=== PATIENT | male | born 1965 | race Caucasian/White ===

== ENCOUNTER 2017-02-20 17:22 | Emergency (ER) | payer OTHER ==
[2017-02-20] MEDS ORDERED: CEPHALEXIN 500 MG CAPSULE PO STA (18:29)
--- NOTE | 2017-02-20 18:29 | Emergency Department Record ---
History of Present Illness - General Chief Complaint: Wound, puncture Stated Complaint: SLIVER IN PALM OF R HAND Time Seen by Provider: 02/20/17 18:07 Source: Patient Mode of Arrival: Ambulatory Limitations: No limitations - History of Present Illness Initial Commments: The patient is here due to a FB in the R palm for one day. He was working with a wood floor and sustained a PW with a large sliver to the R palm. His td is UTD. He denies an numbness, tingling or weakness. Onset/Timin -: Days(s) Place: Home Context: Accidental Associated Symptoms: None - Rosanne Coma Scale Eye Response: (4) Open spontaneously Motor Response: (6) Obeys commands Verbal Response: (5) Oriented [place] Total: 15 - Related Data Hx Tetanus Toxoid Vaccination: Yes Year of Tetanus Vaccination: 2012 Patient Tetanus UTD (within 5 yrs): Yes Home Medications Medication Instructions Recorded Confirmed Last Taken Lisinopril 40 mg PO DAILY 02/20/17 02/20/17 Unknown Previous Rx's Medication Instructions Recorded Cephalexin [Keflex] 500 mg PO QID #20 cap 02/20/17 Allergies Allergy/AdvReac Type Severity Reaction Status Date / Time codeine Allergy ANAPHYLAXIS Verified 02/20/17 17:38 Travel Screening - Travel/Exposure Within Last 30 Days Have you traveled within the last 30 days?: No Review of Systems Constitutional: Denies: Chills, Fever Past Medical History - SOCIAL HISTORY Smoking Status: Never smoker Alcohol Use: None Drug Use: None - RESPIRATORY Hx Respiratory Disorders: No - CARDIOVASCULAR Hx Cardio Disorders: No - NEURO Hx Neuro Disorders: No - GI Hx GI Disorders: Yes Hx Diverticulitis: Yes Hx Irritable Bowel: Yes Comment:: lactose intoerant - Hx Genitourinary Disorders: Yes Comment:: prostitis - ENDOCRINE Hx Endocrine Disorders: No - MUSCULOSKELETAL Hx Musculoskeletal Disorders: No - PSYCH Hx Psych Problems: No - HEMATOLOGY/ONCOLOGY Hx Hematology/Oncology Disorders: No Family Medical History Any Significant Family History?: Yes Hx HTN: Father, Grandparents Physical Exam - General General Appearance: Alert, Oriented x3, Cooperative, No acute distress - Head Head exam: Atraumatic, Normocephalic, Normal inspection - Eye Eye exam: Normal appearance, PERRL - Extremities Extremities exam: negative: Normal inspection (There is a large sliver to the R proximal mid palm. The hand is NVI distally and globally.) - Neurological Neurological exam: Normal gait. negative: Abnormal gait, Motor sensory deficit Course Vital Signs 02/20/17 17:33 Temperature 98.0 F Pulse Rate 89 Respiratory 16 Rate Blood Pressure 138/96 Pulse Ox 97 - Reevaluation(s) Reevaluation #1: Procedure note: The R hand PW was cleansed with alcohol and anesth. with 1 cc Lido 1% with Epi. The PW was then cleansed with alcohol again and a 1/2 inch piece of wood was removed with forceps. There were no complications. 02/20/17 18:27 Reevaluation #2: I did discuss the issue of a retained FB with the patient. The wood FB came out in one piece but there always is a chance there is a retained piece left in the wound. I did discuss with the patient that if the hand does get infected there is a possibility there is still a piece of wood left deep in the wound. If that occurs he will need to return to the ER for further evaluation. 02/20/17 18:31 Disposition Disposition: Discharge Clinical Impression: Puncture wound of hand Qualifiers: Encounter type: initial encounter Foreign body presence: without foreign body Laterality: right Qualified Code(s): S61.431A - Puncture wound without foreign body of right hand, initial encounter Disposition: Home, Self-Care Instructions: Puncture Wound (ED) Additional Instructions: Please wash daily and dress with Abx ointment and cover with a bandaid until healed. Take the Keflex as directed and return to the ER for any signs of infection. Prescriptions: Cephalexin [Keflex] 500 mg PO QID #20 cap Forms: Patient Portal Access Time of Disposition: 18:29
== END 2017-02-20 18:35 | disposition home or self-care (01) ==
LOC: ER 17:22
DX: S60.551A Superficial foreign body of right hand, initial encounter (principal); W45.8XXA Other foreign body or object entering through skin, initial encounter; Y93.H3 Activity, building and construction; Y92.009 Unspecified place in unspecified non-institutional (private) residence as the place of occurrence of the external cause
CPT/HCPCS: 99283

== ENCOUNTER 2019-08-02 19:58 | Emergency (ER) | payer OTHER ==
--- NOTE | 2019-08-02 20:17 | Emergency Department Record ---
History of Present Illness - General Chief Complaint: Numbness Stated Complaint: TIANNA,NUBNESS ON FACE Time Seen by Provider: 08/02/19 20:09 Source: Patient Mode of Arrival: Ambulatory Limitations: No limitations - History of Present Illness Initial Comments: 53 yo male presents to ED for evaluation of numbness and weakness to the left face that began 2-3 days ago, reports that his symptoms have progressively worsened. Patient denies change in vision or change in speech, denies focal weakness to the upper or lower extremities on exmaination. Patient reports a history of HTN, denies history of DM, heart, or lung problems. Patient denies history of vascular disease. Patient reports that he has become fatigued lately after working extended hours. Onset/Timin -: Days(s) Location: Left face History of same: No Place: Home Severity: Moderate Quality: Constant Improves With: None Worsens With: None On Anticoagulants: No Context: Gradual onset Associated Symptoms: Denies other symptoms Treatments Prior to Arrival: None - [place] Coma Scale Eye Response: (4) Open spontaneously Motor Response: (6) Obeys commands Verbal Response: (5) Oriented [place] Total: 15 - Related Data Home Medications: Previous Rx's Medication Instructions Recorded Prednisone [Prednisone 20Mg] 40 mg PO BID #30 tab 08/02/19 Allergies/Adverse Reactions: Allergies Allergy/AdvReac Type Severity Reaction Status Date / Time codeine Allergy ANAPHYLAXIS Verified 02/20/17 17:38 Review of Systems Constitutional: Denies: Chills, Fever, Malaise Eyes: Denies: Eye discharge, Eye pain, Photophobia, Vision change ENT: Denies: Congestion, Ear pain, Epistaxis Respiratory: Denies: Cough, Dyspnea Cardiovascular: Denies: Chest pain, Dyspnea on exertion Endocrine: Reports: Fatigue. Denies: Heat or cold intolerance Gastrointestinal: Denies: Abdominal pain, Nausea, Vomiting Genitourinary: Denies: Incontinence, Retention Musculoskeletal: Denies: Arthralgia, Back pain Skin: Denies: Bruising, Change in color Neurological: Reports: Numbness. Denies: Abnormal gait, Confusion, Headache, Tingling, Tremors Psychiatric: Denies: Anxiety Hematological/Lymphatic: Denies: Anemia, Blood Clots Past Medical History - SOCIAL HISTORY Smoking Status: Never smoker Drug Use: None - RESPIRATORY Hx Respiratory Disorders: No - CARDIOVASCULAR Hx Cardio Disorders: No - NEURO Hx Neuro Disorders: No - GI Hx GI Disorders: Yes Hx Diverticulitis: Yes Hx Irritable Bowel: Yes Comment:: lactose intoerant - Hx Genitourinary Disorders: Yes Comment:: prostitis - ENDOCRINE Hx Endocrine Disorders: No - MUSCULOSKELETAL Hx Musculoskeletal Disorders: No - PSYCH Hx Psych Problems: No - HEMATOLOGY/ONCOLOGY Hx Hematology/Oncology Disorders: No Family Medical History Hx HTN: Father, Grandparents Physical Exam - General General Appearance: Alert, Oriented x3, Cooperative, Mild distress, Anxious Limitations: No limitations - Head Head exam: Atraumatic, Normocephalic, Normal inspection Head exam detail: negative: Abrasion, Contusion, Dennis's sign, General tenderness, Hematoma, Laceration - Eye Eye exam: Normal appearance. negative: Conjunctival injection, Periorbital swelling, Periorbital tenderness, Scleral icterus - ENT Ear exam: negative: Auricular hematoma, Auricular trauma Nasal Exam: negative: Active bleeding, Discharge, Dried blood, Foreign body Mouth exam: negative: Drooling, Laceration, Muffled voice, Tongue elevation - Neck Neck exam: Normal inspection. negative: Meningismus, Tenderness - Respiratory Respiratory exam: Normal lung sounds bilaterally. negative: Respiratory distress, Rhonchi, Stridor, Wheezes - Cardiovascular Cardiovascular Exam: Regular rate, Normal rhythm, Normal heart sounds - GI/Abdominal GI/Abdominal exam: Soft. 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 negative: Abrasion Type of lesion: negative: abrasion Course Vital Signs 08/02/19 20:02 Temperature 98.2 F Pulse Rate [ 88 Left] Respiratory 16 Rate Blood Pressure 183/110 [Left Arm] Pulse Ox 100 - Reevaluation(s) Reevaluation #1: 08/02/19 20:15 EKG: NSR 81 LAD, normal intervals No acute ST-T wave changes are present Patient was seen and examined. Patient is concerned about possible CVA, no evidence for significant CVA based on examination. Patient presents with right sided facial weakness, inability to fully close the right eye, and involvement of the right forehead all c/w LMN or Burnham's palsy. Will obtain basic labs and imaging of the head and neck for further evaluation, and reassess. Reevaluation #2: 08/02/19 21:10 Laboratory studies were reviewed and appear grossly unremarkable for an acute process. Patient is back from CT imaging, reassessed, no progression of his symptoms. Reevaluation #3: 08/02/19 21:46 CT Brain w/o contrast: No acute process Small vessel ischemic changes CTA Head and Neck: No intracranial stenosis Normal anatomy No dissection or stenosis of neck Nodule thyroid, recommend US foollow-up Possible psuedoaneurysm at the junction of the right internal jugular vein and right subclavian vein. Patient and all family members at the bedside were updated on all results Patient was counsled re: Burnham's palsy which appears c/w his examination. Patient appears stable for discharge on Prednisone as directed. Medical Decision Making - Lab Data Result diagrams: 08/02/19 20:10 08/02/19 20:10 Disposition Disposition: Discharge Clinical Impression: Burnham's palsy Disposition: Home, Self-Care Condition: (2) Stable Instructions: Burnham Palsy (ED) Additional Instructions: Return to ED if your symptoms worsen or if you have any concerns. Prednisone and Artifical tears as directed. Follow-up with your family doctor in 1-3 days as directed. Follow-up ultrasound is recommended for possible thyroid nodule and possible psuedoaneurysm at the junction of the right subclavian vein and right internal jugular vein in 2-4 weeks as directed. Prescriptions: Prednisone [Prednisone 20Mg] 40 mg PO BID #30 tab Forms: Patient Portal Access Time of Disposition: 21:51 Quality - Quality Measures Quality Measures: N/A - Blood Pressure Screening Does Patient Have Any of the Following: Active Dx of HTN Blood Pressure Classification: Hypertensive Reading Systolic Measurement: 161 Diastolic Measurement: 96 Screening for High Blood Pressure: Patient Exclusion, Hx of HTN [[id number]]
[2019-08-02 20:32] LABS: ABSOLUTE NEUTROPHIL COUNT 2.18; BASO % 1.4 % (0-6); GRAN % 43.3 % (47-80); HEMATOCRIT 43.8 % (42.0-52.0); HEMOGLOBIN 14.6 gm/dl (14.0-18.0); LYMPH % 38.4 % (16-45); MEAN CELL VOLUME 86.6 fl (81-97); MEAN CORPUSCULAR HEMOGLOBIN 28.9 pg (27-33); MEAN CORPUSCULAR HGB CONC 33.3 g/dl (32-36); MONO % 10.9 % (0-9); PLATELET COUNT 362 K/uL (130-400); RED BLOOD COUNT 5.06 M/uL (4.40-5.70); RED CELL DISTRIBUTION WIDTH 12.9 % (11.5-14.5)
[2019-08-02 20:44] LABS: BLOOD UREA NITROGEN 17 mg/dL (6-20); CREATININE 0.7 mg/dL (0.7-1.2); EST GLOMERULAR FILTRATION RATE > 60 mL/min
[2019-08-02 20:45] LABS: TOTAL PROTEIN 7.2 g/dL (6.6-8.7)
[2019-08-02 20:47] LABS: GLUCOSE,RANDOM 114 mg/dL (74-109)
[2019-08-02 20:50] LABS: ALB/GLOB RATIO 1.7 (1.1-1.8); ALBUMIN 4.5 g/dL (4.0-5.0); ALKALINE PHOSPHATASE 55 U/L (40-129); ALT/SGPT 22 U/L (<41); AST/SGOT 17 U/L (10.0-50.0)
[2019-08-02] MEDS ORDERED: PREDNISONE 20 MG TAB PO ONE (21:58)
--- NOTE | 2019-08-04 20:11 | CT SCAN REPORT ---
EXAM: CT SCAN HEAD WO CONTRAST HISTORY: PATIENT HAS FACIAL NUMBNESS AND LEFT-SIDED WEAKNESS. TECHNIQUE: Serial axial CT scan of the head was performed at 2.5 mm intervals from the base of the skull to the apex without the use of intravenous contrast. Sagittal and coronal reconstructions are provided. No comparison CT's are available. FINDINGS: The ventricles, cisterns, sulci appear within normal limits for size, shape, and attenuation. There is no mass or mass effect. Mild periventricular and subcortical white matter chronic small vessel ischemic changes are identified. There is no CT evidence of intra or extraaxial fluid collection to suggest bleeding. Bone windows demonstrate no CT evidence of a fracture or dislocation of the skull. Paranasal sinuses are unremarkable. IMPRESSION: CHRONIC SMALL VESSEL ISCHEMIC CHANGES ARE NOTED WITHOUT CT EVIDENCE OF AN ACUTE INTRACRANIAL PROCESS. JOB NUMBER: [id number] MTDD
--- NOTE | 2019-08-04 20:33 | CT ANGIOGRAM REPORT ---
EXAM: CT ANGIOGRAM HEAD/NECK CTA w contrast HISTORY: RIGHT-SIDED FACIAL NUMBNESS. TECHNIQUE: Serial axial CT scan of the head and neck was performed at 0.62 mm intervals from the thoracic inlet to the apex of the skull following the intravenous administration of contrast. No comparison CT's are available. FINDINGS: The vertebral body height, contour, AP alignment of the cervical spine is within normal limits. Multilevel degenerative disc disease of the cervical spine is noted. There is no CT evidence of a fracture or dislocation of the cervical spine. Prevertebral soft tissue and parapharyngeal fat are unremarkable. The bilateral parotid, submandibular glands are unremarkable. Posterior to the left lobe of the thyroid gland, there is a 1.9 cm x 1.6 cm possibly enhancing structure. This may be originating from the posterior lobe of the left thyroid gland. Ultrasound examination of this lesion can be obtained for further evaluation. Lymphadenopathy cannot be excluded. Lung windows of the lung apices demonstrate no CT evidence of a focal infiltrate or pleural effusion. Airways are patent. No other focus of cervical lymphadenopathy is noted. Three vessel arch is noted. The contour, caliber, and flow within the bilateral common carotid arteries are within normal limits. There is no CT evidence of dissection of the carotid arteries. The right carotid bulb demonstrates mild calcified atherosclerotic disease. There is no CT evidence of a hemodynamically significant stenosis within the right carotid bulb or the visualized right internal carotid artery. The left carotid bulb demonstrates mild to moderate calcified atherosclerotic disease without CT evidence of focally hemodynamically significant stenosis. The contour, caliber, and flow within the left internal carotid artery is within normal limits. The bilateral external carotid arteries are unremarkable. The bilateral intracranial internal carotid arteries demonstrate normal contour, caliber, and flow. The bilateral A1 and A2 segments demonstrate normal contour, caliber, and flow. The bilateral M1 and M2 segments of the middle cerebral arteries demonstrate normal contour, caliber, and flow. The basilar artery is small in caliber. The bilateral vertebral arteries demonstrate normal contour, caliber, and flow. The patient is left vertebral artery dominant. The distal right vertebral artery becomes very diminutive. The basilar artery is supplied by the left vertebral artery. The bilateral P1 segments are very small in caliber. The bilateral P2 segments demonstrate normal contour, caliber, and flow. The bilateral P2 segments are supplied by the posterior communicating arteries. Brain parenchyma is unremarkable. Within the right supraclavicular region, there is a 2.7 cm x 2.3 cm enhancing lesion. This lesion appears to be originating from the bifurcation of the right internal jugular and right subclavian vein. This finding may represent a pseudoaneurysm. Targeted ultrasound examination of this region can be obtained for further evaluation. IMPRESSION: 1. THYROID NODULE VS. LYMPH NODE IDENTIFIED POSTERIOR TO THE LEFT THYROID LOBE, DISCUSSED ABOVE. ULTRASOUND OF THE THYROID GLAND IN THIS REGION CAN BE OBTAINED FOR FURTHER EVALUATION. 2. ENHANCING LESION IDENTIFIED WITHIN THE RIGHT SUPRACLAVICULAR REGION IS NOTED, DISCUSSED ABOVE. THIS FINDING MAY REPRESENT A PSEUDOANEURYSM FROM THE RIGHT INTERNAL JUGULAR VEIN. TARGETED ULTRASOUND EXAMINATION OF THIS REGION IS RECOMMENDED FOR FURTHER EVALUATION. 3. MILD TO MODERATE CALCIFIED ATHEROSCLEROTIC DISEASE IS NOTED WITHIN THE BILATERAL CAROTID BULBS WITHOUT CT EVIDENCE OF A HEMODYNAMICALLY SIGNIFICANT STENOSIS. THERE IS NO CT EVIDENCE OF DISSECTION. 4. NORMAL-VARIANT INTRACRANIAL ARTERIAL ANATOMY IS NOTED, DISCUSSED ABOVE. JOB NUMBER: [id number] MTDD
== END 2019-08-02 22:13 | disposition home or self-care (01) ==
LOC: ER 19:58
DX: G51.0 Bell's palsy (principal); I10 Essential (primary) hypertension
CPT/HCPCS: 99284 ×2; 85025; 80053; 70496; 70498; 70450; 93005; 93010; Q9967; J7512